=== PATIENT | male | born 2000 | race African-American/Black ===

== ENCOUNTER 2024-12-31 01:07 | Emergency (ER) | payer SELFPAY ==
[~2024-12-31] VITALS: Ht 182.9 cm; Wt 76.0 kg
[2024-12-31 01:12] VITALS: BP 141/86; PULSE 94; RESP 18; TEMP 37; O2SAT 98
[2024-12-31] MEDS ORDERED: NALO4SPR BOTHNSTRLS (01:49)
[2024-12-31] MEDS: BUPRENORPHINE 8MG SL TABLET SL ONE (02:38)
[2024-12-31] MEDS ORDERED: BUPR1TAB33 SL (03:59)
[2025-01-01] MEDS ORDERED: BUPR1FIL5 SL (15:50)
[2025-01-01] MEDS ORDERED: TRAZ-251 MT ×2 (15:53→15:56)
== END 2024-12-31 04:18 | disposition home or self-care (01) ==
LOC: ER 01:24
DX: F11.23 Opioid dependence with withdrawal (principal)
CPT/HCPCS: 99283; Z7610

== ENCOUNTER 2024-12-31 04:28 | Inpatient (IN) | payer SELFPAY ==
[~2024-12-31] VITALS: Ht 182.9 cm; Wt 70.9 kg
[~2024-12-31 04:28] MED LIST: BUPR1TAB33 SL; NALO4SPR BOTHNSTRLS
[2024-12-31] MEDS: ONDANSETRON HCL 4MG TABLET PO ONE (05:07)
[2024-12-31 05:20] LABS: BASOPHILS % 0.3 % (0.0-2.0); HEMATOCRIT. 38.2 % (42.0-52.0); HEMOGLOBIN. 12.7 g/dL (14.0-18.0); LYMPHOCYTES % 12.4 % (20.0-50.0); MEAN CORPUSCULAR HGB CONC 33.3 g/dL (31.0-37.0); MEAN PLATELET VOLUME 7.2 fl (7.4-10.4); MONOCYTES % 6.1 % (2.0-8.0); NEUTROPHILS % 81.2 % (40.0-76.0); PLATELET 532 x1000/uL (130-400); RED BLOOD CELL COUNT 4.54 mill/uL (4.7-6.1); RED CELL DISTRIBUTION WIDTH 14.3 % (11.6-14.6); WHITE BLOOD COUNT 11.5 x1000/uL (4.5-11.0)
[2024-12-31 05:31] LABS: CHLORIDE 103 mEq/L (98-107); POTASSIUM 3.4 mEq/L (3.5-5.1); SODIUM 143 mEq/L (136-145)
[2024-12-31 05:32] LABS: CALCIUM 10.5 mg/dL (8.7-10.4); CARBON DIOXIDE 29 mEq/L (21-32)
[2024-12-31 05:37] LABS: CREATININE 0.8 mg/dL (0.6-1.3); GLUCOSE 155 mg/dL (70-105); UREA NITROGEN BLOOD 15 mg/dL (9-23)
[2024-12-31 05:51] LABS: ALANINE AMINOTRANSFERASE < 7 IU/L (10-49); ALBUMIN 5.1 g/dL (3.2-4.8); ASPARTATE AMINOTRANSFERASE 13 IU/L (<34); BILIRUBIN DIRECT 0.2 mg/dL (<=3.0); BILIRUBIN TOTAL 0.5 mg/dL (0.1-1.0); PROTEIN TOTAL 8.4 g/dL (6.0-8.3)
[2024-12-31] MEDS: CLONIDINE 0.1MG TABLET PO ONE (06:06)
[2024-12-31] MEDS ORDERED: MAGNESIUM HYDROXIDE 400MG/5ML 30ML UDC PO PRN (07:30)
[2024-12-31] MEDS ORDERED: BISACODYL 10MG SUPP PR PRN (07:30)
[2024-12-31] MEDS ORDERED: ACETAMINOPHEN 325MG TABLET PO PRN ×2 (07:30)
[2024-12-31] MEDS ORDERED: LOPERAMIDE HCL 2MG CAPSULE PO PRN (07:45)
[2024-12-31] MEDS ORDERED: DICYCLOMINE HCL 20MG TABLET PO PRN (07:45)
[2024-12-31 09:15] VITALS: BP 131/70; PULSE 73; RESP 16; TEMP 36.4
[2024-12-31] MEDS: HEPARIN 5000 UNITS/ML VIAL SUBCUT SCH (10:08)
[2024-12-31] MEDS: METHOCARBAMOL 750MG TABLET PO PRN (10:09)
[2024-12-31] MEDS: FAMOTIDINE 20MG TABLET PO SCH (10:09)
[2024-12-31] MEDS: MULTIVITAMINS,THER W-MINERALS TABLET PO SCH (10:10)
[2024-12-31] MEDS: ONDANSETRON HCL 4MG TABLET PO PRN (10:10)
[2024-12-31] MEDS: FERROUS SULFATE 325MG TABLET PO SCH (10:10)
[2024-12-31] MEDS: LORAZEPAM 0.5MG TABLET PO PRN (10:10)
[2024-12-31] MEDS: THIAMINE HCL 100MG TABLET PO SCH (10:11)
[2024-12-31] MEDS: FOLIC ACID 1MG TABLET PO SCH (10:11)
[2024-12-31] MEDS: IBUPROFEN 400MG TABLET PO PRN (10:13)
[2024-12-31 12:00] VITALS: BP 132/79; PULSE 72; RESP 20; TEMP 36.4; O2SAT 99
[2024-12-31 13:15] LABS: BASOPHILS % 0.5 % (0.0-2.0); HEMATOCRIT. 37.9 % (42.0-52.0); HEMOGLOBIN. 12.6 g/dL (14.0-18.0); LYMPHOCYTES % 15.6 % (20.0-50.0); MEAN CORPUSCULAR HGB CONC 33.3 g/dL (31.0-37.0); MEAN PLATELET VOLUME 7.4 fl (7.4-10.4); MONOCYTES % 9.5 % (2.0-8.0); NEUTROPHILS % 74.4 % (40.0-76.0); PLATELET 484 x1000/uL (130-400); RED BLOOD CELL COUNT 4.52 mill/uL (4.7-6.1); RED CELL DISTRIBUTION WIDTH 14.9 % (11.6-14.6); WHITE BLOOD COUNT 11.7 x1000/uL (4.5-11.0)
[2024-12-31 13:23] LABS: CHLORIDE 104 mEq/L (98-107); POTASSIUM 3.8 mEq/L (3.5-5.1); SODIUM 142 mEq/L (136-145)
[2024-12-31 13:24] LABS: CALCIUM 10.5 mg/dL (8.7-10.4); CARBON DIOXIDE 29 mEq/L (21-32)
[2024-12-31 13:28] LABS: IRON 98 ug/dL (65-175)
[2024-12-31 13:29] LABS: CREATININE 0.9 mg/dL (0.6-1.3); GLUCOSE 114 mg/dL (70-105); UREA NITROGEN BLOOD 17 mg/dL (9-23)
[2024-12-31 13:31] LABS: TOTAL IRON BINDING CAPACITY 274 ug/dl (250-425)
[2024-12-31 13:34] LABS: FOLIC ACID (FOLATE) SERUM 5.51 ng/mL (>5.38)
[2024-12-31 13:35] LABS: VITAMIN B12 SERUM 653 pg/mL (211-911)
[2024-12-31 13:46] LABS: HEPATITIS B SURFACE ANTIGEN NEGATIVE (Negative)
[2024-12-31 14:07] LABS: HEPATITIS C AB NON REACTIVE (Neg) (Negative)
[2024-12-31] MEDS: BUPRENORPHINE 2MG SL TABLET SL SCH (15:35)
[2024-12-31] MEDS: POTASSIUM-SODIUM PHOSPHATE POWDER PACKET PO SCH (15:35)
[2024-12-31 16:00] VITALS: BP 128/62; PULSE 78; RESP 18; TEMP 37.1; O2SAT 100
[2024-12-31] MEDS: DIPHENHYDRAMINE 25MG CAPSULE PO PRN (18:37)
[2024-12-31 20:00] VITALS: BP 136/75; PULSE 71; RESP 18; TEMP 36.5; O2SAT 98
[2024-12-31] MEDS: TRAZODONE HCL 50MG TABLET PO SCH (22:52)
[2025-01-01] VITALS: BP 123/66; PULSE 68; RESP 18; TEMP 37.3
[2025-01-01 04:16] VITALS: BP 118/64; PULSE 61; RESP 18; TEMP 36.9; O2SAT 99
[2025-01-01 06:19] LABS: BASOPHILS % 0.4 % (0.0-2.0); EOSINOPHILS % 0.1 % (0.0-5.0); HEMATOCRIT. 36.4 % (42.0-52.0); HEMOGLOBIN. 12.1 g/dL (14.0-18.0); LYMPHOCYTES % 18.6 % (20.0-50.0); MEAN CORPUSCULAR HEMOGLOBIN 27.5 pg (28.0-32.0); MEAN CORPUSCULAR HGB CONC 33.4 g/dL (31.0-37.0); MEAN CORPUSCULAR VOLUME 82.5 fL (80.0-94.0); MEAN PLATELET VOLUME 7.4 fl (7.4-10.4); MONOCYTES % 8.5 % (2.0-8.0); NEUTROPHILS % 72.4 % (40.0-76.0); PLATELET 431 x1000/uL (130-400); RED BLOOD CELL COUNT 4.41 mill/uL (4.7-6.1); RED CELL DISTRIBUTION WIDTH 14.7 % (11.6-14.6); WHITE BLOOD COUNT 12.3 x1000/uL (4.5-11.0)
[2025-01-01 06:33] LABS: CHLORIDE 106 mEq/L (98-107); POTASSIUM 3.7 mEq/L (3.5-5.1); SODIUM 146 mEq/L (136-145)
[2025-01-01 06:34] LABS: CALCIUM 10.2 mg/dL (8.7-10.4); CARBON DIOXIDE 29 mEq/L (21-32)
[2025-01-01 06:38] LABS: UREA NITROGEN BLOOD 21 mg/dL (9-23)
[2025-01-01 06:39] LABS: CREATININE 0.8 mg/dL (0.6-1.3); GLUCOSE 118 mg/dL (70-105)
[2025-01-01 06:41] LABS: ALANINE AMINOTRANSFERASE < 7 IU/L (10-49); ALBUMIN 4.6 g/dL (3.2-4.8); ASPARTATE AMINOTRANSFERASE 12 IU/L (<34)
[2025-01-01 06:42] LABS: BILIRUBIN DIRECT 0.2 mg/dL (<=3.0); BILIRUBIN TOTAL 0.7 mg/dL (0.1-1.0); PROTEIN TOTAL 7.7 g/dL (6.0-8.3)
[2025-01-01 08:00] VITALS: BP 126/69; PULSE 70; RESP 18; TEMP 36.2; O2SAT 100
[2025-01-01 12:00] VITALS: BP 127/72; PULSE 86; RESP 18; TEMP 37; O2SAT 100
[2025-01-01] MEDS ORDERED: BUPR1FIL5 SL (15:50)
[2025-01-01] MEDS ORDERED: TRAZ-251 MT ×2 (15:53→15:56)
[2025-01-01 16:00] VITALS: BP 128/79; PULSE 70; RESP 18; TEMP 36; O2SAT 98
[2025-01-01 20:12] VITALS: BP 128/79; PULSE 70; TEMP 97.5; O2SAT 98
== END 2025-01-01 20:50 | disposition home or self-care (01) | DRG 425 ==
LOC: ER 04:28 → 6WST 06:31
PROVIDERS: ADMIT Internal Medicine; ATTEND Internal Medicine
DX: E87.6 Hypokalemia (principal); D64.9 Anemia, unspecified; F11.23 Opioid dependence with withdrawal; D72.829 Elevated white blood cell count, unspecified; R53.1 Weakness; R73.9 Hyperglycemia, unspecified; Z79.899 Other long term (current) drug therapy
CPT/HCPCS: 36415; 80048; 80076; 82607; 82746; 83540; 83550; 83735; 84100; 85025; 86705; 87340; 99285; J1644; Q0162; Q0163